=== PATIENT | male | born 1970 | race Caucasian/White ===

== ENCOUNTER 2017-02-07 02:05 | Emergency (ER) | payer OTHER ==
--- NOTE | 2017-02-07 02:57 | ED CLINICAL REPORT ---
Clinical Report - Physicians/Mid Levels [facility] [address] [place] [address] 02/07/2017 2:10 Patient: AMINTA FINLEY Time Seen: 0210. Arrived- By private vehicle. Historian- patient. HISTORY OF PRESENT ILLNESS Chief Complaint: INSECT BITE. This started past few days and is still present. It was abrupt in onset and has been constant but is not gone now. It is described as painful. It has been located on the face. A possible cause has been identified (insect or spider bite). No recent medication. (no report of the insect being seen. only pressumes a bite because of recent work in an area that could hold those insects/spiders). Similar symptoms previously: Once. ( reports hx of MRSA). Recent medical care: Not recently seen/assessed. REVIEW OF SYSTEMS No fever, chills, nausea or vomiting. All systems otherwise negative, except as recorded above. PAST HISTORY See nurses notes. Tetanus immunization status is unknown. Medications: None. Allergies: NKDA. SOCIAL HISTORY Smoker- current status unknown. Alcohol use. No drug use. No recent travel. Is a local resident. ADDITIONAL NOTES The nursing notes have been reviewed. PHYSICAL EXAM Vital Signs: 02/07/2017 02:19 BP: 134/80. HR: 85. RR: 18. O2 saturation: 100%. Temp: 98.3 F. Pain level now: 7/10. Blood pressure normal. Oxygen saturation normal. Appearance: Alert. Oriented X3. No acute distress. ENT: ( Small area of erythema and induration to the forehead. No area of fluctuance. Measured area is approximately 2 cm at the largest diameter. Small area which is less than 1 cm to the right cheek also noted. No crepitus. No bony abnormalities. No foreign bodies noted.). CVS: Heart sounds normal. Respiratory: No respiratory distress. Breath sounds normal. Chest nontender. Abdomen: Nontender. No organomegaly. Skin: Skin warm and dry. Normal skin color. No rash. Normal skin turgor. PROGRESS AND PROCEDURES Course of Care: The patient is a 46-year-old male with past medical history significant for MRSA who presents for evaluation of possible insect bite to theface. Patient likely with cellulitis and local reaction. Recommended antibiotics. Because of the cosmetic sensitivity of the area,recommended patient have warm compresses to the area andhave the area come to ahead naturally. Do not feel bedside incision and drainage indicated time. Discussed with the patient's workup here in the emergency department including diagnosis, home care, follow-up, and return precautions. All questions have been answered. The patient expressed understanding of these instructions and was agreeable to them. Disposition: Discharged. Condition: good. CLINICAL IMPRESSION 02/07/2017 02:19 BP: 134/80. HR: 85. RR: 18. O2 saturation: 100%. Temp: 98.3 F. Pain level now: 7/10. Blood pressure normal. Oxygen saturation normal. Cellulitis of the forehead (and right chin). need for tetanus booster. INSTRUCTIONS Warnings: GENERAL WARNINGS: Return or contact your physician immediately if your condition worsens or changes unexpectedly, if not improving as expected, or if other problems arise. Specifically return if pain, vomiting, bleeding, breathing difficulty or fever. Your Current Medications: CONTINUE TAKING THE FOLLOWING MEDICATIONS: None*. Prescription Medications: Bactrim DS 800 mg / 160 mg: take 1 tablet orally every 12 hours for 10 days. No refill. Substitution is permissible. (disp 20 tabs) Keflex 500 mg: take 1 capsule orally every 8 hours for 10 days. No refill. Substitution is permissible. (disp 30 caps) Follow-up: Return to the emergency department as needed. Follow up with your doctor in three days. Reason for referral: recheck today's concerns. Summary of care provided to patient via paper. Screening today revealed the patient's blood pressure to be in the normal range. The patient should follow up with a primary care provider for blood pressure management. Understanding of the discharge instructions verbalized by patient. Follow-up with: [facility], , [address], [place], [phone] Follow up in three days. Reason for referral: contact if you do not have a primary care provider (PCP). Summary of care provided to patient via paper. (Electronically signed by Thierno Henderson Dr. 02/07/2017 7:35)
--- NOTE | 2017-02-07 02:57 | ED CLINICAL REPORT ---
Clinical Report - Physicians/Mid Levels [facility] [address] [place] [address] 02/07/2017 2:10 Patient: AMINTA FINLEY Time Seen: 0210. Arrived- By private vehicle. Historian- patient. HISTORY OF PRESENT ILLNESS Chief Complaint: INSECT BITE. This started past few days and is still present. It was abrupt in onset and has been constant but is not gone now. It is described as painful. It has been located on the face. A possible cause has been identified (insect or spider bite). No recent medication. (no report of the insect being seen. only pressumes a bite because of recent work in an area that could hold those insects/spiders). Similar symptoms previously: Once. ( reports hx of MRSA). Recent medical care: Not recently seen/assessed. REVIEW OF SYSTEMS No fever, chills, nausea or vomiting. All systems otherwise negative, except as recorded above. PAST HISTORY See nurses notes. Tetanus immunization status is unknown. Medications: None. Allergies: NKDA. SOCIAL HISTORY Smoker- current status unknown. Alcohol use. No drug use. No recent travel. Is a local resident. ADDITIONAL NOTES The nursing notes have been reviewed. PHYSICAL EXAM Vital Signs: 02/07/2017 02:19 BP: 134/80. HR: 85. RR: 18. O2 saturation: 100%. Temp: 98.3 F. Pain level now: 7/10. Blood pressure normal. Oxygen saturation normal. Appearance: Alert. Oriented X3. No acute distress. ENT: ( Small area of erythema and induration to the forehead. No area of fluctuance. Measured area is approximately 2 cm at the largest diameter. Small area which is less than 1 cm to the right cheek also noted. No crepitus. No bony abnormalities. No foreign bodies noted.). CVS: Heart sounds normal. Respiratory: No respiratory distress. Breath sounds normal. Chest nontender. Abdomen: Nontender. No organomegaly. Skin: Skin warm and dry. Normal skin color. No rash. Normal skin turgor. PROGRESS AND PROCEDURES Course of Care: The patient is a 46-year-old male with past medical history significant for MRSA who presents for evaluation of possible insect bite to theface. Patient likely with cellulitis and local reaction. Recommended antibiotics. Because of the cosmetic sensitivity of the area,recommended patient have warm compresses to the area andhave the area come to ahead naturally. Do not feel bedside incision and drainage indicated time. Discussed with the patient's workup here in the emergency department including diagnosis, home care, follow-up, and return precautions. All questions have been answered. The patient expressed understanding of these instructions and was agreeable to them. Disposition: Discharged. Condition: good. CLINICAL IMPRESSION 02/07/2017 02:19 BP: 134/80. HR: 85. RR: 18. O2 saturation: 100%. Temp: 98.3 F. Pain level now: 7/10. Blood pressure normal. Oxygen saturation normal. Cellulitis of the forehead (and right chin). need for tetanus booster. INSTRUCTIONS Warnings: GENERAL WARNINGS: Return or contact your physician immediately if your condition worsens or changes unexpectedly, if not improving as expected, or if other problems arise. Specifically return if pain, vomiting, bleeding, breathing difficulty or fever. Your Current Medications: CONTINUE TAKING THE FOLLOWING MEDICATIONS: None*. Prescription Medications: Bactrim DS 800 mg / 160 mg: take 1 tablet orally every 12 hours for 10 days. No refill. Substitution is permissible. (disp 20 tabs) Keflex 500 mg: take 1 capsule orally every 8 hours for 10 days. No refill. Substitution is permissible. (disp 30 caps) Follow-up: Return to the emergency department as needed. Follow up with your doctor in three days. Reason for referral: recheck today's concerns. Summary of care provided to patient via paper. Screening today revealed the patient's blood pressure to be in the normal range. The patient should follow up with a primary care provider for blood pressure management. Understanding of the discharge instructions verbalized by patient. Follow-up with: [facility], , [address], [place], [phone] Follow up in three days. Reason for referral: contact if you do not have a primary care provider (PCP). Summary of care provided to patient via paper. (Electronically signed by Thierno Henderson Dr. 02/07/2017 7:35)
--- NOTE | 2017-02-07 02:58 | ED ORDER SUMMARY ---
..... Patient: AMINTA FINLEY OrderSheet [facility] VisitID: [id number] [address] [place] [address] 46y, M Registration Date/Time: 02/07/2017 ORDER SHEET Weight: 70.3 kg (stated) Allergies: NKDA GENERAL ORDERS: MEDICATION ORDERS: Keflex PO 500 mg (NOW) (02:52 02/07/2017 Johanne Dillon) (Ack 2:53 JSanders R.N.) (3:06 JSanders R.N.) Bactrim DS PO (Tablet 800-160 mg) 1 tab (NOW) (02:52 02/07/2017 Johanne Dillon) (Ack 2:53 JSanders R.N.) (3:06 JSanders R.N.) Hnujtsk-Gucmvw-Gnzcl Pertussis IM 0.5 mL (NOW, per protocol) (02:52 02/07/2017 Johanne Dillon) (Ack 2:53 JSanders R.N.) (3:06 JSanders R.N.) IV FLUIDS: ORDER SHEET NOTES: [Electronically signed by Elsi Oliva R.N. (03:12 02/07/2017)] [Electronically signed by Thierno Henderson Dr. (07:35 02/07/2017)] [Electronically locked/signed by Elsi Oliva R.N. (03:12 02/07/2017)]
--- NOTE | 2017-02-07 02:58 | ED ORDER SUMMARY ---
..... Patient: AMINTA FINLEY OrderSheet [facility] VisitID: [id number] [address] [place] [address] 46y, M Registration Date/Time: 02/07/2017 ORDER SHEET Weight: 70.3 kg (stated) Allergies: NKDA GENERAL ORDERS: MEDICATION ORDERS: Keflex PO 500 mg (NOW) (02:52 02/07/2017 Johanne Dillon) (Ack 2:53 JSanders R.N.) (3:06 JSanders R.N.) Bactrim DS PO (Tablet 800-160 mg) 1 tab (NOW) (02:52 02/07/2017 Johanne Dillon) (Ack 2:53 JSanders R.N.) (3:06 JSanders R.N.) Fwlvxza-Ybigtc-Ebxka Pertussis IM 0.5 mL (NOW, per protocol) (02:52 02/07/2017 Johanne Dillon) (Ack 2:53 JSanders R.N.) (3:06 JSanders R.N.) IV FLUIDS: ORDER SHEET NOTES: [Electronically signed by Elsi Oliva R.N. (03:12 02/07/2017)] [Electronically signed by Thierno Henderson Dr. (07:35 02/07/2017)] [Electronically locked/signed by Elsi Oliva R.N. (03:12 02/07/2017)]
--- NOTE | 2017-02-07 02:58 | ED NURSING NOTES ---
Clinical Report - Nurses [facility] [address] [place] [address] 02/07/2017 2:10 Patient: AMINTA FINLEY TRIAGE Triage time 02:Feb 07 2017. Acuity: LEVEL 5. 02:24 02/07/17. SEPSIS SCREEN: Sepsis Screen. Negative (no infection suspected/documented). LUIS A COMA SCORE: Luis A Coma Scale: 15- eyes open spontaneously (4); best verbal response- oriented x 4 (5); best motor response- obeys commands (6). --02:24 Elsi Oliva R.N. 02:19 02/07/17. BP: 134/80 (regular adult cuff) taken on the left arm, while sitting. HR: 85. RR: 18. O2 saturation: 100% on room air. Temp: 98.3 F (oral). Pain level now: 02/16. --02:24 Elsi Oliva R.N. Chief Complaint: (Patient has two bug bites on face, one on forehead and other on right side of face under eye). --02:25 Elsi Oliva R.N. Weight: 70.3 kg stated. Height/Length: 71 inches Per Patient. BMI: 21.6. --02:21 Elsi Oliva R.N. Medications None. --02:20 Elsi Oliva R.N. Allergies NKDA. --02:20 Elsi Oliva R.N. History Arrived by private vehicle. Historian: patient. Accompanied by family. Onset. (two days ago). ( BRAN). Treatment WELL DIGGER: (Benadryl). SOCIAL HX: Current every day heavy tobacco smoker (cigarette)- 1 pack per day. Occasional alcohol use; consumes beer. No drug use. No infectious disease exposure. ABUSE ASSESSMENT: No report of abuse. SELF HARM ASSESSMENT: A self harm assessment was performed. The patient answered "no" to the question "Do you have thoughts of harming or killing yourself?" and "Have you recently had thoughts about harming or killing others?". --02:24 Elsi Oliva R.N. PROBLEMS: MRSA Infection. --02:21 Elsi Oliva R.N. ADDITIONAL SURGERIES: Finger surgery. --02:21 Elsi Oliva R.N. Interventions ID band on patient. To treatment room. --02:24 Elsi Oliva R.N. PHYSICAL ASSESSMENT 02:02/07/17. Ambulatory to room. GENERAL / NEURO / PSYCH: Alert. Oriented X 4. Appears in no acute distress. HEENT: Pupils equal, round and reactive to light. No facial asymmetry noted. Mucous membranes are pink. RESPIRATORY: Respirations not labored. Chest nontender. Breath sounds within normal limits. CVS: Normal sinus rhythm noted. Capillary refill less than 2 seconds. Pulses within normal limits. GI / : Abdomen soft and nontender and normal bowel sounds. SKIN: Skin intact. Skin is warm and dry. Normal skin turgor. --02: Elsi Oliva R.N. NURSING PROGRESS NOTES 02:02/07/17. The plan of care for this patient has been created. Head of bed elevated. Reassurance given. Two patient identifiers checked. Call light placed in reach. Side rails up x 1. Bed placed in lowest position. Brakes of bed on. Patient ready for evaluation- chart flagged and ED physician notified. --02:26 Elsi Oliva R.N. 03:06 02/07/2017 Keflex (Cephalexin) PO Capsules 500 mg given. Allergies verified and confirmed 5 rights. --03:06 Elsi Oliva R.N. 03:02/07/2017 Bactrim DS (Sulfamethoxazole-TMP DS) PO Tablets 1 tab given. Allergies verified and confirmed 5 rights. --03:06 Elsi Oliva R.N. 03:02/07/2017 [id number] PERTUSSIS IM 0.5 mL given. (Lot#: [id number], expiration date: 12/26/2018, Affiliate Marketing Manager: sanofi pasteur). Given in the right deltoid. Allergies verified and confirmed 5 rights. Vaccine information statement provided to the patient. --03:06 Elsi Oliva R.N. DISPOSITION / DISCHARGE 03:12 02/07/17. Departure time: 03:10 Feb 07 2017. Condition at departure: unchanged. No learning barriers present. Discharge instructions provided and reviewed with the patient. Reviewed medication(s) side effects, precautions, dosing and course information. Prescription(s) given to the patient. Patient verbalized understanding. Written instructions provided in Uzbek. The patient was discharged by the physician. He was discharged home and accompanied by spouse. He left the Emergency Department ambulatory and via private vehicle. Spouse driving. --03:12 Elsi Oliva R.N. 03:10 02/07/17. BP: 134/80 (regular adult cuff) taken on the left arm. HR: 85. RR: 18. O2 saturation: 100% on room air. Temp: 98.3 F (oral). Pain level now: 02/16. --03:12 Elsi Oliva R.N. Locked/Released at 02/07/2017 3:12 by Elsi Oliva R.N.
--- NOTE | 2017-02-07 02:58 | ED NURSING NOTES ---
Clinical Report - Nurses [facility] [address] [place] [address] 02/07/2017 2:10 Patient: AMINTA FINLEY TRIAGE Triage time 02:Feb 07 2017. Acuity: LEVEL 5. 02:24 02/07/17. SEPSIS SCREEN: Sepsis Screen. Negative (no infection suspected/documented). LUIS A COMA SCORE: Luis A Coma Scale: 15- eyes open spontaneously (4); best verbal response- oriented x 4 (5); best motor response- obeys commands (6). --02:24 Elsi Oliva R.N. 02:19 02/07/17. BP: 134/80 (regular adult cuff) taken on the left arm, while sitting. HR: 85. RR: 18. O2 saturation: 100% on room air. Temp: 98.3 F (oral). Pain level now: 02/16. --02:24 Elsi Oliva R.N. Chief Complaint: (Patient has two bug bites on face, one on forehead and other on right side of face under eye). --02:25 Elsi Oliva R.N. Weight: 70.3 kg stated. Height/Length: 71 inches Per Patient. BMI: 21.6. --02:21 Elsi Oliva R.N. Medications None. --02:20 Elsi Oliva R.N. Allergies NKDA. --02:20 Elsi Oliva R.N. History Arrived by private vehicle. Historian: patient. Accompanied by family. Onset. (two days ago). ( BRAN). Treatment MEDIA CENTER SPECIALIST: (Benadryl). SOCIAL HX: Current every day heavy tobacco smoker (cigarette)- 1 pack per day. Occasional alcohol use; consumes beer. No drug use. No infectious disease exposure. ABUSE ASSESSMENT: No report of abuse. SELF HARM ASSESSMENT: A self harm assessment was performed. The patient answered "no" to the question "Do you have thoughts of harming or killing yourself?" and "Have you recently had thoughts about harming or killing others?". --02:24 Elsi Oliva R.N. PROBLEMS: MRSA Infection. --02:21 Elsi Oliva R.N. ADDITIONAL SURGERIES: Finger surgery. --02:21 Elsi Oliva R.N. Interventions ID band on patient. To treatment room. --02:24 Elsi Oliva R.N. PHYSICAL ASSESSMENT 02:02/07/17. Ambulatory to room. GENERAL / NEURO / PSYCH: Alert. Oriented X 4. Appears in no acute distress. HEENT: Pupils equal, round and reactive to light. No facial asymmetry noted. Mucous membranes are pink. RESPIRATORY: Respirations not labored. Chest nontender. Breath sounds within normal limits. CVS: Normal sinus rhythm noted. Capillary refill less than 2 seconds. Pulses within normal limits. GI / : Abdomen soft and nontender and normal bowel sounds. SKIN: Skin intact. Skin is warm and dry. Normal skin turgor. --02: Elsi Oliva R.N. NURSING PROGRESS NOTES 02:02/07/17. The plan of care for this patient has been created. Head of bed elevated. Reassurance given. Two patient identifiers checked. Call light placed in reach. Side rails up x 1. Bed placed in lowest position. Brakes of bed on. Patient ready for evaluation- chart flagged and ED physician notified. --02:26 Elsi Oliva R.N. 03:06 02/07/2017 Keflex (Cephalexin) PO Capsules 500 mg given. Allergies verified and confirmed 5 rights. --03:06 Elsi Oliva R.N. 03:02/07/2017 Bactrim DS (Sulfamethoxazole-TMP DS) PO Tablets 1 tab given. Allergies verified and confirmed 5 rights. --03:06 Elsi Oliva R.N. 03:02/07/2017 [id number] PERTUSSIS IM 0.5 mL given. (Lot#: [id number], expiration date: 12/26/2018, Subject Scientific Research: sanofi pasteur). Given in the right deltoid. Allergies verified and confirmed 5 rights. Vaccine information statement provided to the patient. --03:06 Elsi Oliva R.N. DISPOSITION / DISCHARGE 03:12 02/07/17. Departure time: 03:10 Feb 07 2017. Condition at departure: unchanged. No learning barriers present. Discharge instructions provided and reviewed with the patient. Reviewed medication(s) side effects, precautions, dosing and course information. Prescription(s) given to the patient. Patient verbalized understanding. Written instructions provided in Chinese. The patient was discharged by the physician. He was discharged home and accompanied by spouse. He left the Emergency Department ambulatory and via private vehicle. Spouse driving. --03:12 Elsi Oliva R.N. 03:10 02/07/17. BP: 134/80 (regular adult cuff) taken on the left arm. HR: 85. RR: 18. O2 saturation: 100% on room air. Temp: 98.3 F (oral). Pain level now: 02/16. --03:12 Elsi Oliva R.N. Locked/Released at 02/07/2017 3:12 by Elsi Oliva R.N.
--- NOTE | 2017-02-07 07:35 | ED MAR SUMMARY ---
..... Medication Administration Record [facility] [address] [place] [address] Patient: AMINTA FINLEY Visit ID: [id number] 46y, M Weight: 70.3 kg Height/Length: 71 in BMI: 21.6 ALLERGIES: NKDA Given 03:02/07/2017 Elsi Oliva R.N. Medication Administered: KEFLEX [PO] (CEPHALEXIN), Dose: 500 mg Capsules PO. Medication Ordered: Keflex PO 500 mg (NOW). Given 03:02/07/2017 Elsi Oliva R.N. Medication Administered: BACTRIM DS [PO] (SULFAMETHOXAZOLE-TMP DS), Dose: 1 tab Tablets PO. Medication Ordered: Bactrim DS PO (Tablet 800-160 mg) 1 tab (NOW). Given 03:02/07/2017 Elsi Oliva R.NDaily Medication Administered: HDYVENW-QCWYHY-OYYDB PERTUSSIS [IM], Dose: 0.5 mL IM. Medication Ordered: Obwydlb-Zjyerr-Ulwuq Pertussis IM 0.5 mL (NOW, per protocol).
--- NOTE | 2017-02-07 07:35 | ED DISCHARGE INSTRUCTIONS ---
Patient: AMINTA FINLEY General Instructions [facility] VisitID: [id number] [address] [place] [address] 46y, M Registration Date/Time: 02/07/2017 02/07/2017 02:19 BP: 134/80. HR: 85. RR: 18. O2 saturation: 100%. Temp: 98.3 F. Pain level now: 7/10. Blood pressure normal. Oxygen saturation normal. Cellulitis of the forehead (and right chin). need for tetanus booster. INSTRUCTIONS Warnings: GENERAL WARNINGS: Return or contact your physician immediately if your condition worsens or changes unexpectedly, if not improving as expected, or if other problems arise. Specifically return if pain, vomiting, bleeding, breathing difficulty or fever. Your Current Medications: CONTINUE TAKING THE FOLLOWING MEDICATIONS: None*. Prescription Medications: Bactrim DS 800 mg / 160 mg: take 1 tablet orally every 12 hours for 10 days. No refill. Substitution is permissible. (disp 20 tabs) Keflex 500 mg: take 1 capsule orally every 8 hours for 10 days. No refill. Substitution is permissible. (disp 30 caps) Follow-up: Return to the emergency department as needed. Follow up with your doctor in three days. Reason for referral: recheck today's concerns. Summary of care provided to patient via paper. Screening today revealed the patient's blood pressure to be in the normal range. The patient should follow up with a primary care provider for blood pressure management. Understanding of the discharge instructions verbalized by patient. Follow-up with: [facility], , [address], [place], [address] Follow up in three days. Reason for referral: contact if you do not have a primary care provider (PCP). Summary of care provided to patient via paper. ADDITIONAL INFORMATION Cellulitis You have an infection of the skin known as cellulitis. This usually starts with a scrape, cut, insect bite, blister or other opening in the skin which becomes infected. This is a serious condition. It must be watched closely to be sure the infection is not spreading. With antibiotic treatment, the size of the red area will gradually shrink in size until the skin returns to normal. This will take 7-10 days. The red area should never increase in size once the antibiotic medicine has been started. Occasionally, an infection will be resistant to one antibiotic and another one will have to be used. Home Care: 1) Limit the use of the affected part, since excess movement can cause the infection to spread. 2) If the infection is on your leg, walk as little as possible during the first few days of the treatment. Keep your leg elevated while sitting. This will reduce swelling. 3) Take all of the antibiotic medicine exactly as directed until it is gone. Be careful not to miss any doses, especially during the first seven days. Follow Up with your doctor or this facility as directed. Check the infected area daily for the warning signs listed below. Get Prompt Medical Attention if any of the following occur: -- Spreading area of redness -- Increasing swelling or pain -- Appearance of pus or drainage -- Fever over 100.4 F (38.0 C) oral, or over 101.4 F (38.6 C) rectal, after two days on antibiotics Sulfamethoxazole, Trimethoprim Oral tablet What is this medicine? SULFAMETHOXAZOLE; TRIMETHOPRIM or SMX-TMP (suhl fuh meth OK lou zohl; trye METH oh prim) is a combination of a sulfonamide antibiotic and a second antibiotic, trimethoprim. It is used to treat or prevent certain kinds of bacterial infections. It will not work for colds, flu, or other viral infections. How should I use this medicine? Take this medicine by mouth with a full glass of water. Follow the directions on the prescription label. Take your medicine at regular intervals. Do not take it more often than directed. Do not skip doses or stop your medicine early. Talk to your electronic health records specialist regarding the use of this medicine in children. Special care may be needed. This medicine has been used in children as young as 2 months of age. What side effects may I notice from receiving this medicine? Side effects that you should report to your doctor or health childcare attendant as soon as possible: allergic reactions like skin rash or hives, swelling of the face, lips, or tongue breathing problems fever or chills, sore throat irregular heartbeat, chest pain joint or muscle pain pain or difficulty passing urine red pinpoint spots on skin redness, blistering, peeling or loosening of the skin, including inside the mouth unusual bleeding or bruising unusually weak or tired yellowing of the eyes or skin Side effects that usually do not require medical attention (report to your doctor or health childcare attendant if they continue or are bothersome): diarrhea dizziness headache loss of appetite nausea, vomiting nervousness What may interact with this medicine? Do not take this medicine with any of the following medications: aminobenzoate potassium dofetilide metronidazole This medicine may also interact with the following medications: BRIGETTE inhibitors like benazepril, enalapril, lisinopril, and ramipril cyclosporine digoxin diuretics indomethacin medicines for diabetes methenamine methotrexate phenytoin potassium supplements pyrimethamine sulfinpyrazone tricyclic antidepressants warfarin What if I miss a dose? If you miss a dose, take it as soon as you can. If it is almost time for your next dose, take only that dose. Do not take double or extra doses. Where should I keep my medicine? Keep out of the reach of children. Store at room temperature between 20 to 25 degrees C (68 to 77 degrees F). Protect from light. Throw away any unused medicine after the expiration date. What should I tell my health care provider before I take this medicine? They need to know if you have any of these conditions: anemia asthma being treated with anticonvulsants if you frequently drink alcohol containing drinks kidney disease liver disease low level of folic acid or lvaljeh-1-aemhpusep dehydrogenase poor nutrition or malabsorption porphyria severe allergies thyroid disorder an unusual or allergic reaction to sulfamethoxazole, trimethoprim, sulfa drugs, other medicines, foods, dyes, or preservatives or trying to get breast-feeding What should I watch for while using this medicine? Tell your doctor or health childcare attendant if your symptoms do not improve. Drink several glasses of water a day to reduce the risk of kidney problems. Do not treat diarrhea with over the counter products. Contact your doctor if you have diarrhea that lasts more than 2 days or if it is severe and watery. This medicine can make you more sensitive to the sun. Keep out of the sun. If you cannot avoid being in the sun, wear protective clothing and use a sunscreen. Do not use sun lamps or tanning beds/booths. Cephalexin Monohydrate Oral tablet What is this medicine? CEPHALEXIN (sef a SUSY in) is a cephalosporin antibiotic. It is used to treat certain kinds of bacterial infections It will not work for colds, flu, or other viral infections. How should I use this medicine? Take this medicine by mouth with a full glass of water. Follow the directions on the prescription label. This medicine can be taken with or without food. Take your medicine at regular intervals. Do not take your medicine more often than directed. Take all of your medicine as directed even if you think you are better. Do not skip doses or stop your medicine early. Talk to your electronic health records specialist regarding the use of this medicine in children. While this drug may be prescribed for selected conditions, precautions do apply. What side effects may I notice from receiving this medicine? Side effects that you should report to your doctor or health childcare attendant as soon as possible: allergic reactions like skin rash, itching or hives, swelling of the face, lips, or tongue breathing problems pain or trouble passing urine redness, blistering, peeling or loosening of the skin, including inside the mouth severe or watery diarrhea unusually weak or tired yellowing of the eyes, skin Side effects that usually do not require medical attention (report to your doctor or health childcare attendant if they continue or are bothersome): gas or heartburn genital or anal irritation headache joint or muscle pain nausea, vomiting What may interact with this medicine? probenecid some other antibiotics What if I miss a dose? If you miss a dose, take it as soon as you can. If it is almost time for your next dose, take only that dose. Do not take double or extra doses. There should be at least 4 to 6 hours between doses. Where should I keep my medicine? Keep out of the reach of children. Store at room temperature between 59 and 86 degrees F (15 and 30 degrees C). Throw away any unused medicine after the expiration date. What should I tell my health care provider before I take this medicine? They need to know if you have any of these conditions: kidney disease stomach or intestine problems, especially colitis an unusual or allergic reaction to cephalexin, other cephalosporins, penicillins, other antibiotics, medicines, foods, dyes or preservatives or trying to get breast-feeding What should I watch for while using this medicine? Tell your doctor or health childcare attendant if your symptoms do not begin to improve in a few days. Do not treat diarrhea with over the counter products. Contact your doctor if you have diarrhea that lasts more than 2 days or if it is severe and watery. If you have diabetes, you may get a false-positive result for sugar in your urine. Check with your doctor or health childcare attendant. You have been given the following additional information: Cellulitis Sulfamethoxazole, Trimethoprim Oral tablet Cephalexin Monohydrate Oral tablet (Electronically signed by Thierno Henderson Dr. 02/07/2017 7:35)
--- NOTE | 2017-02-07 07:35 | ED MED RECONCILIATION SUMMARY ---
Patient: AMINTA FINLEY Medication Reconciliation Report [facility] VisitID: [id number] [address] [place] [address] 46y, M Registration Date/Time: 02/07/2017 Weight: 70.3 kg Height/Length: 71 in. BMI: 21.6 ALLERGIES: NKDA The patient's Home Medications are listed below: NONE. The source(s) of the original Home Medication information: Not obtained. The following Medications were given to the patient in the Emergency Department: Keflex [PO] PO 500 mg, administered: 02/07/2017 3:06:00 AM Bactrim DS [PO] PO 1 tab, administered: 02/07/2017 3:06:00 AM [id number] PERTUSSIS [IM] IM 0.5 mL, administered: 02/07/2017 3:06:00 AM The following Medications were prescribed to the patient: Bactrim DS 800 mg / 160 mg: take 1 tablet orally every 12 hours for 10 days. No refill. Substitution is permissible.(disp 20 tabs) -- Thierno Henderson Dr. Keflex 500 mg: take 1 capsule orally every 8 hours for 10 days. No refill. Substitution is permissible.(disp 30 caps) -- Thierno Henderson Dr.
--- NOTE | 2017-02-07 07:35 | ED DISCHARGE INSTRUCTIONS ---
Patient: AMINTA FINLEY General Instructions [facility] VisitID: [id number] [address] [place] [address] 46y, M Registration Date/Time: 02/07/2017 02/07/2017 02:19 BP: 134/80. HR: 85. RR: 18. O2 saturation: 100%. Temp: 98.3 F. Pain level now: 7/10. Blood pressure normal. Oxygen saturation normal. Cellulitis of the forehead (and right chin). need for tetanus booster. INSTRUCTIONS Warnings: GENERAL WARNINGS: Return or contact your physician immediately if your condition worsens or changes unexpectedly, if not improving as expected, or if other problems arise. Specifically return if pain, vomiting, bleeding, breathing difficulty or fever. Your Current Medications: CONTINUE TAKING THE FOLLOWING MEDICATIONS: None*. Prescription Medications: Bactrim DS 800 mg / 160 mg: take 1 tablet orally every 12 hours for 10 days. No refill. Substitution is permissible. (disp 20 tabs) Keflex 500 mg: take 1 capsule orally every 8 hours for 10 days. No refill. Substitution is permissible. (disp 30 caps) Follow-up: Return to the emergency department as needed. Follow up with your doctor in three days. Reason for referral: recheck today's concerns. Summary of care provided to patient via paper. Screening today revealed the patient's blood pressure to be in the normal range. The patient should follow up with a primary care provider for blood pressure management. Understanding of the discharge instructions verbalized by patient. Follow-up with: [facility], , [address], [place], [address] Follow up in three days. Reason for referral: contact if you do not have a primary care provider (PCP). Summary of care provided to patient via paper. ADDITIONAL INFORMATION Cellulitis You have an infection of the skin known as cellulitis. This usually starts with a scrape, cut, insect bite, blister or other opening in the skin which becomes infected. This is a serious condition. It must be watched closely to be sure the infection is not spreading. With antibiotic treatment, the size of the red area will gradually shrink in size until the skin returns to normal. This will take 7-10 days. The red area should never increase in size once the antibiotic medicine has been started. Occasionally, an infection will be resistant to one antibiotic and another one will have to be used. Home Care: 1) Limit the use of the affected part, since excess movement can cause the infection to spread. 2) If the infection is on your leg, walk as little as possible during the first few days of the treatment. Keep your leg elevated while sitting. This will reduce swelling. 3) Take all of the antibiotic medicine exactly as directed until it is gone. Be careful not to miss any doses, especially during the first seven days. Follow Up with your doctor or this facility as directed. Check the infected area daily for the warning signs listed below. Get Prompt Medical Attention if any of the following occur: -- Spreading area of redness -- Increasing swelling or pain -- Appearance of pus or drainage -- Fever over 100.4 F (38.0 C) oral, or over 101.4 F (38.6 C) rectal, after two days on antibiotics Sulfamethoxazole, Trimethoprim Oral tablet What is this medicine? SULFAMETHOXAZOLE; TRIMETHOPRIM or SMX-TMP (suhl fuh meth OK lou zohl; trye METH oh prim) is a combination of a sulfonamide antibiotic and a second antibiotic, trimethoprim. It is used to treat or prevent certain kinds of bacterial infections. It will not work for colds, flu, or other viral infections. How should I use this medicine? Take this medicine by mouth with a full glass of water. Follow the directions on the prescription label. Take your medicine at regular intervals. Do not take it more often than directed. Do not skip doses or stop your medicine early. Talk to your appellate law clerk regarding the use of this medicine in children. Special care may be needed. This medicine has been used in children as young as 2 months of age. What side effects may I notice from receiving this medicine? Side effects that you should report to your doctor or health primary care sales representative as soon as possible: allergic reactions like skin rash or hives, swelling of the face, lips, or tongue breathing problems fever or chills, sore throat irregular heartbeat, chest pain joint or muscle pain pain or difficulty passing urine red pinpoint spots on skin redness, blistering, peeling or loosening of the skin, including inside the mouth unusual bleeding or bruising unusually weak or tired yellowing of the eyes or skin Side effects that usually do not require medical attention (report to your doctor or health primary care sales representative if they continue or are bothersome): diarrhea dizziness headache loss of appetite nausea, vomiting nervousness What may interact with this medicine? Do not take this medicine with any of the following medications: aminobenzoate potassium dofetilide metronidazole This medicine may also interact with the following medications: BRIGETTE inhibitors like benazepril, enalapril, lisinopril, and ramipril cyclosporine digoxin diuretics indomethacin medicines for diabetes methenamine methotrexate phenytoin potassium supplements pyrimethamine sulfinpyrazone tricyclic antidepressants warfarin What if I miss a dose? If you miss a dose, take it as soon as you can. If it is almost time for your next dose, take only that dose. Do not take double or extra doses. Where should I keep my medicine? Keep out of the reach of children. Store at room temperature between 20 to 25 degrees C (68 to 77 degrees F). Protect from light. Throw away any unused medicine after the expiration date. What should I tell my health care provider before I take this medicine? They need to know if you have any of these conditions: anemia asthma being treated with anticonvulsants if you frequently drink alcohol containing drinks kidney disease liver disease low level of folic acid or [id number] dehydrogenase poor nutrition or malabsorption porphyria severe allergies thyroid disorder an unusual or allergic reaction to sulfamethoxazole, trimethoprim, sulfa drugs, other medicines, foods, dyes, or preservatives or trying to get breast-feeding What should I watch for while using this medicine? Tell your doctor or health primary care sales representative if your symptoms do not improve. Drink several glasses of water a day to reduce the risk of kidney problems. Do not treat diarrhea with over the counter products. Contact your doctor if you have diarrhea that lasts more than 2 days or if it is severe and watery. This medicine can make you more sensitive to the sun. Keep out of the sun. If you cannot avoid being in the sun, wear protective clothing and use a sunscreen. Do not use sun lamps or tanning beds/booths. Cephalexin Monohydrate Oral tablet What is this medicine? CEPHALEXIN (sef a SUSY in) is a cephalosporin antibiotic. It is used to treat certain kinds of bacterial infections It will not work for colds, flu, or other viral infections. How should I use this medicine? Take this medicine by mouth with a full glass of water. Follow the directions on the prescription label. This medicine can be taken with or without food. Take your medicine at regular intervals. Do not take your medicine more often than directed. Take all of your medicine as directed even if you think you are better. Do not skip doses or stop your medicine early. Talk to your appellate law clerk regarding the use of this medicine in children. While this drug may be prescribed for selected conditions, precautions do apply. What side effects may I notice from receiving this medicine? Side effects that you should report to your doctor or health primary care sales representative as soon as possible: allergic reactions like skin rash, itching or hives, swelling of the face, lips, or tongue breathing problems pain or trouble passing urine redness, blistering, peeling or loosening of the skin, including inside the mouth severe or watery diarrhea unusually weak or tired yellowing of the eyes, skin Side effects that usually do not require medical attention (report to your doctor or health primary care sales representative if they continue or are bothersome): gas or heartburn genital or anal irritation headache joint or muscle pain nausea, vomiting What may interact with this medicine? probenecid some other antibiotics What if I miss a dose? If you miss a dose, take it as soon as you can. If it is almost time for your next dose, take only that dose. Do not take double or extra doses. There should be at least 4 to 6 hours between doses. Where should I keep my medicine? Keep out of the reach of children. Store at room temperature between 59 and 86 degrees F (15 and 30 degrees C). Throw away any unused medicine after the expiration date. What should I tell my health care provider before I take this medicine? They need to know if you have any of these conditions: kidney disease stomach or intestine problems, especially colitis an unusual or allergic reaction to cephalexin, other cephalosporins, penicillins, other antibiotics, medicines, foods, dyes or preservatives or trying to get breast-feeding What should I watch for while using this medicine? Tell your doctor or health primary care sales representative if your symptoms do not begin to improve in a few days. Do not treat diarrhea with over the counter products. Contact your doctor if you have diarrhea that lasts more than 2 days or if it is severe and watery. If you have diabetes, you may get a false-positive result for sugar in your urine. Check with your doctor or health primary care sales representative. You have been given the following additional information: Cellulitis Sulfamethoxazole, Trimethoprim Oral tablet Cephalexin Monohydrate Oral tablet (Electronically signed by Thierno Henderson Dr. 02/07/2017 7:35)
--- NOTE | 2017-02-07 07:35 | ED MED RECONCILIATION SUMMARY ---
Patient: AMINTA FINLEY Medication Reconciliation Report [facility] VisitID: [id number] [address] [place] [address] 46y, M Registration Date/Time: 02/07/2017 Weight: 70.3 kg Height/Length: 71 in. BMI: 21.6 ALLERGIES: NKDA The patient's Home Medications are listed below: NONE. The source(s) of the original Home Medication information: Not obtained. The following Medications were given to the patient in the Emergency Department: Keflex [PO] PO 500 mg, administered: 02/07/2017 3:06:00 AM Bactrim DS [PO] PO 1 tab, administered: 02/07/2017 3:06:00 AM [id number] PERTUSSIS [IM] IM 0.5 mL, administered: 02/07/2017 3:06:00 AM The following Medications were prescribed to the patient: Bactrim DS 800 mg / 160 mg: take 1 tablet orally every 12 hours for 10 days. No refill. Substitution is permissible.(disp 20 tabs) -- Thierno Henderson Dr. Keflex 500 mg: take 1 capsule orally every 8 hours for 10 days. No refill. Substitution is permissible.(disp 30 caps) -- Thierno Henderson Dr.
--- NOTE | 2017-02-07 07:35 | ED MAR SUMMARY ---
..... Medication Administration Record [facility] [address] [place] [address] Patient: AMINTA FNILEY Visit ID: [id number] 46y, M Weight: 70.3 kg Height/Length: 71 in BMI: 21.6 ALLERGIES: NKDA Given 03:02/07/2017 Elsi Oliva R.N. Medication Administered: KEFLEX [PO] (CEPHALEXIN), Dose: 500 mg Capsules PO. Medication Ordered: Keflex PO 500 mg (NOW). Given 03:02/07/2017 Elsi Oliva R.N. Medication Administered: BACTRIM DS [PO] (SULFAMETHOXAZOLE-TMP DS), Dose: 1 tab Tablets PO. Medication Ordered: Bactrim DS PO (Tablet 800-160 mg) 1 tab (NOW). Given 03:02/07/2017 Elsi Oliva R.NDaily Medication Administered: [id number] PERTUSSIS [IM], Dose: 0.5 mL IM. Medication Ordered: Terqdei-Gdlfcl-Dwpot Pertussis IM 0.5 mL (NOW, per protocol).
== END 2017-02-07 03:10 | disposition home or self-care (01) ==
LOC: ED SRH 02:05
DX: L03.211 Cellulitis of face (principal); W57.XXXA Bitten or stung by nonvenomous insect and other nonvenomous arthropods, initial encounter; Y93.9 Activity, unspecified; Y92.9 Unspecified place or not applicable; Y99.9 Unspecified external cause status; Z23 Encounter for immunization